=== PATIENT | female | born 1975 | race Asian ===

== ENCOUNTER 2021-07-23 13:11 | Emergency (ER) | payer OTHER ==
[~2021-07-23] VITALS: Ht 165.1 cm; Wt 46.7 kg
[2021-07-23 13:32] VITALS: BP_SYST 135
--- NOTE | 2021-07-23 13:32 | NUR ---
Patient to ER bed 3 to gown for evaluation. Side rails up.
--- NOTE | 2021-07-23 13:33 | NUR ---
Pt came into Er with C/O lower abdominal pain 02/18 X1day. Pt denies N/V/D. Pt AAOX4 speaking full sentences. Resting in gurney VSS no distress noted.
--- NOTE | 2021-07-23 13:45 | NUR ---
PT IS STABLE, NAD, SOME MILD PAIN, TRANSLATING IN [place]. PT HAS HISTORY OF ENDOMETRIOSIS, AWAITING ER MD FOR FURTHER ASSESSMENT AND LABS.
[2021-07-23 14:09] VITALS: BP_SYST 105
[2021-07-23 14:47] LABS: EOSINOPHILS # (AUTO) 0.1 K/uL (0.0-0.4); HEMATOCRIT 41.9 % (36-48); HEMOGLOBIN 13.9 g/dL (12.0-16.0); LYMPHOCYTES # (AUTO) 1.4 K/uL (1.0-5.5); LYMPHOCYTES % (AUTO) 28.6 % (20.5-51.5); MEAN CORPUSCULAR HEMOGLOBIN 30 pg (27-31); MEAN CORPUSCULAR HGB CONC 33 % (32-36); MEAN CORPUSCULAR VOLUME 91 fL (79.0-98.0); MONOCYTES # (AUTO) 0.4 K/uL (0.0-1.0); MONOCYTES % (AUTO) 7.7 % (1.7-9.3); NEUTROPHILS # (AUTO) 2.9 K/uL (1.8-7.7); NEUTROPHILS % (AUTO) 59.7 % (40.0-70.0); PLATELET COUNT (AUTO) 309 K/uL (130-430); RED CELL DISTRIBUTION WIDTH 13.3 % (9.0-15.0); WHITE BLOOD COUNT (AUTO) 4.8 K/uL (4.8-10.8)
[2021-07-23] MEDS ORDERED: IBUPROFEN 600 MG TABLET PO ONE (15:00)
[2021-07-23 15:04] LABS: BLOOD, URINE NEGATIVE (NEGATIVE); CLARITY/URINE CLEAR (CLEAR); COLOR,URINE YELLOW (YELLOW); GLUCOSE,URINE NEGATIVE (NEGATIVE); KETONES,URINE 1+ (NEGATIVE); LEUKOCYTE ESTERASE ,URINE TRACE (NEGATIVE); NITRITE, URINE NEGATIVE (NEGATIVE); PH,URINE 5.5 (5.0-8.0); PROTEIN URINE NEGATIVE (NEGATIVE); UROBILINOGEN,URINE 0.2 (0.2-1.0)
[2021-07-23 15:16] LABS: BILIRUBIN,URINE NEGATIVE (NEGATIVE)
[2021-07-23 15:18] LABS: BACTERIA,URINE FEW /HPF (None Seen); CALCIUM OXALATE CRYSTALS,UR 0-10 /HPF (None Seen); MUCUS,URINE 1+ /LPF (None Seen); RBC,URINE NONE SEEN /HPF (0-3)
[2021-07-23 15:24] LABS: CALCIUM 8.6 mg/dL (8.4-11.0); CREATININE 0.7 mg/dL (0.55-1.30)
[2021-07-23 15:29] LABS: ALBUMIN 4.2 g/dL (3.4-4.8); TOTAL BILIRUBIN 0.9 mg/dL (0.0-1.0)
[2021-07-23] MEDS ORDERED: CEPH250C PO (15:37)
--- NOTE | 2021-07-23 15:44 | NUR ---
Patient given written and verbal discharge instructions and verbalizes understanding. ER MD discussed with patient the results and treatment provided. Patient in stable condition. ID arm band removed. IV catheter removed intact and dressing applied, no active bleeding. Patient educated on pain management and to follow up with PMD. Pain Scale [0]. Opportunity for questions provided and answered. Medication side effect fact sheet provided.
== END 2021-07-23 15:44 | disposition home or self-care (01) ==
LOC: SED 13:11
DX: N39.0 Urinary tract infection, site not specified (principal); Z79.899 Other long term (current) drug therapy
CPT/HCPCS: 36415; 80053; 81000; 81025; 83690; 85025; 99283

== ENCOUNTER 2021-08-23 14:26 | Emergency (ER) | payer OTHER ==
[~2021-08-23] VITALS: Ht 162.6 cm; Wt 46.3 kg
[~2021-08-23 14:26] MED LIST: CEPH250C PO
--- NOTE | 2021-08-23 15:05 | NUR ---
Patient to ER bed hallway to [facility] for evaluation. Side rails up. Report given to CHAPIN Tucker.
[2021-08-23 15:09] VITALS: BP_SYST 107
--- NOTE | 2021-08-23 15:10 | NUR ---
Patient noted to be in hallway bed per Dr Cruz. Per report received from computerized machine fabric cutter, patient here reporting abdominal pain 2/10 for 2-3 hours. Denies N/V, constipation, or urinary problems. Awaiting further evaluation.
--- NOTE | 2021-08-23 15:12 | NUR ---
ER at bedside examining patient.
[2021-08-23] MEDS ORDERED: NITR-85 PO (15:49)
[2021-08-23] MEDS ORDERED: PHEN-726 PO (15:49)
[2021-08-23 15:50] VITALS: BP_SYST 102
--- NOTE | 2021-08-23 15:50 | NUR ---
Patient given written and verbal discharge instructions and verbalizes understanding. ER MD discussed with patient the results and treatment provided. Patient in stable condition. ID arm band removed. Rx of MACROBID AND PYRIDIUM given. Patient educated on pain management and to follow up with PMD. Pain Scale 0/10 Opportunity for questions provided and answered. Medication side effect fact sheet provided.
== END 2021-08-23 15:50 | disposition home or self-care (01) ==
LOC: SED 14:26
DX: N30.90 Cystitis, unspecified without hematuria (principal); Z79.899 Other long term (current) drug therapy
CPT/HCPCS: 99283